=== PATIENT | male | born 1945 | race Caucasian/White ===

== ENCOUNTER 2018-06-16 18:23 | Emergency (ER) | payer MEDICARE, OTHER ==
[~2018-06-16] VITALS: Ht 182.9 cm; Wt 108.9 kg
--- OUTSIDE RECORDS SUMMARY | 2018-06-16 18:26 | XMS REPORT ---
Author Author Jose Daniel Tabares Organization eClinicalWorks Address Unknown Phone Unavailable Care Team Providers Care Child Care Development Specialist Name Role Phone Jose Daniel Tabares CP Unavailable Allergies, Adverse Reactions, Alerts Substance Reaction Event Type N.K.D.A. Info Not Available Non Drug Allergy Problems Problem Type Condition Code Onset Dates Condition Status Assessment Other symptoms involving cardiovascular system R09.89 Active Assessment HTN (hypertension), benign I10 Active Assessment PVD (peripheral vascular disease) I73.9 Active Problem HTN (hypertension), benign I10 Active Problem PVD (peripheral vascular disease) I73.9 Active Problem Coronary artery disease involving [place] coronary artery, angina presence unspecified, unspecified whether [place] or transplanted heart I25.10 Active Assessment Coronary artery disease involving [place] coronary artery, angina presence unspecified, unspecified whether elem or transplanted heart I25.10 Active Assessment Hx of CABG Z95.1 Active Assessment Abnormal electrocardiogram R94.31 Active Assessment Encounter for preprocedural cardiovascular examination Z01.810 Active Medications Medication Code System Code Instructions Start Date End Date Status Dosage Plavix [facility] [address]-44 75 MG Orally Once a day Active 1 [place] [address]-99 25 MG Orally Once a day Active 1 tablet NOVALOG NDC 0 45 once a day Active 1 tablet Pravastatin Sodium [facility] [address]-95 80 MG Orally Once a day Active 1 tablet Metroprolol ER Succinate NDC 0 25 mg twice a day (bid) Active 1 tablet Lantus [facility] [address]-61 85 Subcutaneous once a day Active 1 tablet Januvia [facility] [address]-77 50 MG Orally Once a day Active 2 tablets Jardiance [facility] [address]-52 10 MG Orally Once a day May 13, 2017 Jun 12, 2017 Active 1 tablet Vital Signs Date/Time: May 13, 2017 BMI 30.78 Index Weight 227 lbs Height 6'0 in Cardiac Monitoring Heart Rate 86 /min Blood Pressure Diastolic 60 mm Hg Blood Pressure Systolic 142 mm Hg Results No Known Results Summary Purpose eClinicalWorks Submission
--- OUTSIDE RECORDS SUMMARY | 2018-06-16 18:26 | XMS REPORT ---
Author Author Jose Daniel Tabares Organization eClinicalWorks Address Unknown Phone Unavailable Care Team Providers Care Barrel Builder Name Role Phone Jose Daniel Tabares CP Unavailable Allergies, Adverse Reactions, Alerts Substance Reaction Event Type N.K.D.A. Info Not Available Non Drug Allergy Problems Problem Type Condition Code Onset Dates Condition Status Assessment PVD (peripheral vascular disease) I73.9 Active Assessment Hx of CABG Z95.1 Active Assessment HTN (hypertension), benign I10 Active Assessment Carotid stenosis, right I65.21 Active Assessment Other symptoms involving cardiovascular system R09.89 Active Problem PVD (peripheral vascular disease) I73.9 Active Problem Coronary artery disease involving [place] coronary artery, angina presence unspecified, unspecified whether [place] or transplanted heart I25.10 Active Problem Carotid stenosis, right I65.21 Active Assessment Encounter for preprocedural cardiovascular examination Z01.810 Active Assessment Coronary artery disease involving [place] coronary artery, angina presence unspecified, unspecified whether [place] or transplanted heart I25.10 Active Problem HTN (hypertension), benign I10 Active Assessment Abnormal electrocardiogram R94.31 Active Medications Medication Code System Code Instructions Start Date End Date Status Dosage Triamterene-HCTZ [facility] 09589599681 37.5-25 MG Orally Once a day as needed December 15, 2017 Active 1 tablet in the morning Januvia ND 79575832683 50 MG Orally Once a day Active 2 tablets Pravastatin Sodium ND 35923892377 80 MG Orally Once a day Active 1 tablet Losartan Potassium ND 57394046176 25 MG Orally Once a day Active 1 tablet Plavix ND 52308483822 75 MG Orally Once a day Active 1 tablet Protonix ND 55863541215 40 MG Orally Once a day Active 1 tablet Metroprolol ER Succinate ND 0 25 mg twice a day (bid) Active 1 tablet Vital Signs Date/Time: December 15, 2017 BMI 30.78 Index Weight 227 lbs Height 6'0 in Cardiac Monitoring Heart Rate 68 /min Blood Pressure Diastolic 70 mm Hg Blood Pressure Systolic 148 mm Hg Results No Known Results Summary Purpose eClinicalWorks Submission
--- OUTSIDE RECORDS SUMMARY | 2018-06-16 18:26 | XMS REPORT ---
Author Author Jose Daniel Tabares Organization eClinicalWorks Address Unknown Phone Unavailable Care Team Providers Care Panel Flow Machine Operator Name Role Phone Jose Daniel Tabares CP Unavailable Allergies No Known Allergies Problems Problem Type Condition Code Onset Dates Condition Status Problem PVD (peripheral vascular disease) I73.9 Active Problem Coronary artery disease involving [place] coronary artery, angina presence unspecified, unspecified whether [place] or transplanted heart I25.10 Active Problem Carotid stenosis, right I65.21 Active Problem HTN (hypertension), benign I10 Active Medications Medication Code System Code Instructions Start Date End Date Status Dosage Triamterene-HCTZ [facility] 86160004825 37.5-25 MG Orally Once a day as needed December 15, 2017 Active 1 tablet in the morning Results No Known Results Summary Purpose eClinicalWorks Submission
--- OUTSIDE RECORDS SUMMARY | 2018-06-16 18:26 | XMS REPORT ---
Author Author Jose Daniel Tabares Organization eClinicalWorks Address Unknown Phone Unavailable Care Team Providers Care Temporary Office Assistant Name Role Phone Jose Daniel Tabares CP Unavailable Allergies No Known Allergies Problems Problem Type Condition Code Onset Dates Condition Status Assessment Other symptoms involving cardiovascular system R09.89 Active Assessment HTN (hypertension), benign I10 Active Assessment PVD (peripheral vascular disease) I73.9 Active Problem HTN (hypertension), benign I10 Active Problem PVD (peripheral vascular disease) I73.9 Active Problem Coronary artery disease involving [place] coronary artery, angina presence unspecified, unspecified whether [place] or transplanted heart I25.10 Active Assessment Coronary artery disease involving [place] coronary artery, angina presence unspecified, unspecified whether [place] or transplanted heart I25.10 Active Assessment Hx of CABG Z95.1 Active Assessment Abnormal electrocardiogram R94.31 Active Assessment Encounter for preprocedural cardiovascular examination Z01.810 Active Medications No Known Medications Results No Known Results Summary Purpose [employer] Submission
--- OUTSIDE RECORDS SUMMARY | 2018-06-16 18:26 | XMS REPORT ---
Author Author Jose Daniel Tabares Organization eClinicalWorks Address Unknown Phone Unavailable Care Team Providers Care Certified Marine Mechanic Name Role Phone Jose Daniel Tabares CP Unavailable Allergies No Known Allergies Problems Problem Type Condition Code Onset Dates Condition Status Assessment Other symptoms involving cardiovascular system R09.89 Active Assessment HTN (hypertension), benign I10 Active Assessment PVD (peripheral vascular disease) I73.9 Active Problem HTN (hypertension), benign I10 Active Problem PVD (peripheral vascular disease) I73.9 Active Problem Coronary artery disease involving [place] coronary artery, angina presence unspecified, unspecified whether [place] or transplanted heart I25.10 Active Assessment Coronary artery disease involving [place] coronary artery, angina presence unspecified, unspecified whether [place] or transplanted heart I25.10 Active Assessment Hx of CABG Z95.1 Active Assessment Abnormal electrocardiogram R94.31 Active Assessment Encounter for preprocedural cardiovascular examination Z01.810 Active Medications No Known Medications Results No Known Results Summary Purpose [employer]Works Submission
--- OUTSIDE RECORDS SUMMARY | 2018-06-16 18:26 | XMS REPORT ---
Author Author Jameson Mercado Organization e[employer]Works Address Unknown Phone Unavailable Care Team Providers Care Security Incident Response Engineer Name Role Phone Jameson Mercado Unavailable Encounters Encounter Location Date [place] [facility] Jun 24, 2016 Other [facility] Jul 29, 2016 Unknown [facility] Aug 03, 2014 Unknown [facility] Aug 03, 2014 Unknown [facility] Aug 12, 2014 Problems Problem Type Condition ICD-9 Code Onset Dates Condition Status Problem Hypertension 997.91 Active Problem Cellulitis - Foot 682.7 Active Problem Ulcer of right foot, with fat layer exposed L97.512 Active Problem Type 2 diabetes mellitus with diabetic peripheral angiopathy without gangrene E11.51 Active Problem Ulcer of other part of foot 707.15 Active Problem 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 . Answer: No quit 1988, Are you a former smoker Jul 09, 2016 Do you drink alcohol? . Status: Yes, Type: Socially Jul 09, 2016 Occupation: . disable Jul 09, 2016 Summary Purpose eClinicalWorks Submission
--- OUTSIDE RECORDS SUMMARY | 2018-06-16 18:26 | XMS REPORT ---
[facility] Address Unknown Phone Unavailable Care Team Providers Care Picker Box Operator Name Role Phone Unavailable Unavailable Payers Payer Name Policy Type Policy Number Effective Date Expiration Date Problems This patient has no known problems. Allergies, Adverse Reactions, Alerts Allergy Name Allergy Type Status Severity Reaction(s) Onset Date Inactive Date Treating Clinician Comments No Known Allergies DA Active U 2018-01-18 00:00:00 Medications This patient has no known medications.
--- OUTSIDE RECORDS SUMMARY | 2018-06-16 18:26 | XMS REPORT ---
Author Author Jameson Mercado Organization eClinicalWorks Address Unknown Phone Unavailable Care Team Providers Care It Solutions Sales Consultant Name Role Phone Jameson Mercado Unavailable Encounters Encounter Location Date [place] [facility] Jun 24, 2016 Unknown [facility] Aug 03, 2014 Unknown [facility] Aug 03, 2014 Unknown [facility] Aug 12, 2014 Problems Problem [...] quit 1988, Are you a former smoker Jun 14, 2016 Do you drink alcohol? . Status: Yes, Type: Socially Jun 14, 2016 Occupation: . disable Jun 14, 2016 Summary Purpose eClinicalWorks Submission
--- OUTSIDE RECORDS SUMMARY | 2018-06-16 18:26 | XMS REPORT ---
Author Author Jose Daniel Tabares Organization eClinicalWorks Address Unknown Phone Unavailable Care Team Providers Care Engineering Production Liaison Name Role Phone Jose Daniel Tabares CP [...] I73.9 Active Problem Coronary artery disease involving [place] coronary artery, angina presence unspecified, unspecified whether [place] or transplanted heart I25.10 Active Assessment Coronary artery disease involving [place] coronary artery, angina presence unspecified, unspecified whether [place] or transplanted heart I25.10 Active Assessment Hx of CABG Z95.1 Active Assessment Abnormal electrocardiogram R94.31 Active Assessment Encounter for preprocedural cardiovascular examination Z01.810 Active Medications Medication Code System Code Instructions Start Date End Date Status Dosage Losartan Potassium [facility] [address]-48 25 MG Orally Once a day Active 1 tablet Metroprolol ER Succinate NDC 0 25 mg twice a day (bid) Active 1 tablet Lantus [facility] [address]-22 85 Subcutaneous once a day Active 1 tablet Pravastatin Sodium [facility] [address]-32 80 MG Orally Once a day Active 1 tablet NOVALOG NDC 0 45 once a day Active 1 tablet Plavix [facility] [address]-14 75 MG Orally Once a day [place] 1 [place] [address]-35 50 MG Orally Once a day Active 2 tablets Vital Signs Date/Time: October 22, 2016 BMI 30.92 Index Weight 228 lbs Height 6'0 in Cardiac Monitoring Heart Rate 70 /min Blood Pressure Diastolic 72 mm Hg Blood Pressure Systolic 142 mm Hg Results No Known Results Summary Purpose eClinicalWorks Submission
--- OUTSIDE RECORDS SUMMARY | 2018-06-16 18:26 | XMS REPORT | Clinical Summary ---
Author Author Damian Sabianism Organization [facility] Address Unknown Phone Unavailable Care Team Providers Care Front Line Supervisor Name Role Phone Dileep Reyes MD PCP Allergies No Known Allergies Medications End Date Status Medication Sig Dispensed Refills Start Date Active gemfibrozil (LOPID) 600 Take 600 mg 0 01/15/ MG tablet by mouth 2 8 (two) times a day. Active pantoprazole (PROTONIX) Take 40 mg by 0 40 MG EC tablet mouth daily. 8 Active pioglitazone (ACTOS) 45 Take 45 mg by 0 02/03/ MG tablet mouth daily. 8 Active CLENPIQ 10 mg-3.5 gram TAKE 0 -12 gram/160 mL solution DIRECTED BY 8 PHYSICIAN Active triamterene-hydrochloroth 1 TABLET IN 2 iazid (MAXZIDE-25) THE MORNING 8 37.5-25 mg per tablet ONCE A DAY NEEDED ORALLY 30 DAY(S) Active ergocalciferol, vitamin Take by 0 D2, (VITAMIN D2 ORAL) mouth. 1 every 2 weeks Active ASPIRIN ORAL Take by 0 mouth. Active metoprolol tartrate Take 1 tablet 60 tablet 11 (LOPRESSOR) 25 mg tablet (25 mg total) 8 by mouth 2 (two) times a day. 04/01/2019 Active losartan (COZAAR) 25 MG Take 1 tablet 90 tablet 0 tablet (25 mg total) 8 by mouth daily. Active insulin GLARGINE (LANTUS Inject 80 10 mL 11 U-100 INSULIN) 100 Units under 8 unit/mL injection (vial) the skin nightly. Active insulin lispro (HumaLOG Inject 30 10 mL U-100 Insulin) 100 Units under 8 unit/mL injection the skin 3 (three) times a day before meals. Active diclofenac (VOLTAREN) 1 % Apply 4 gm to 100 g 1 gel affected area 8 QID 06/25/2018 Active tiZANidine (ZANAFLEX) 4 Take 1 tablet 20 tablet 0 MG tablet (4 mg total) 8 by mouth every 8 (eight) hours as needed for muscle spasms for up to 30 days. 04/01/2018 Discontinued guaifenesin/DM/pseudoephe Take by 0 drine (DECONGESTANT COUGH mouth. otc ORAL) Active Problems Problem Noted Date Pulmonary fibrosis 04/01/2018 Diabetic polyneuropathy associated with type 2 diabetes mellitus 02/09/2018 Uncontrolled type 2 diabetes mellitus with stage 3 chronic kidney disease, 02/09/2018 without long-term current use of insulin PAD (peripheral artery disease) 02/09/2018 Pulmonary emphysema 02/09/2018 Essential hypertension 02/09/2018 Legally blind in left eye, as defined in [place] 02/09/2018 Mixed hyperlipidemia 02/09/2018 BMI 32.0-32.9,adult 02/09/2018 Atherosclerosis of [place] coronary artery of apache heart without angina 02/09/2018 pectoris Chronic kidney disease, stage III (moderate) 02/09/2018 Other gastritis with bleeding 02/09/2018 VICTOR HUGO on CPAP 02/09/2018 Colon polyps 02/09/2018 Encounters Care Team Description Date Type Specialty Dileep Reyes MD Acute bilateral low back pain without sciatica (Primary Dx); Degenerative disc disease, lumbar; Uncontrolled type 2 diabetes mellitus with stage 3 chronic kidney disease, without long-term current use of insulin (HCC); Chronic kidney disease, stage III (moderate) (HCC); Essential hypertension 05/26/2018 Office Visit Family Medicine Dileep Reyes MD 05/20/2018 Telephone Family Medicine Dileep Reyes MD Diabetic polyneuropathy associated with type 2 diabetes mellitus (Primary Dx); Chronic kidney disease, stage III (moderate); Proliferative diabetic retinopathy of both eyes associated with type 2 diabetes mellitus, unspecified proliferative retinopathy type; Gastroesophageal reflux disease without esophagitis; Pulmonary emphysema, unspecified emphysema type; Pulmonary fibrosis; PAD (peripheral artery disease); Mixed hyperlipidemia; Essential hypertension; Uncontrolled type 2 diabetes mellitus with stage 3 chronic kidney disease, without long-term current use of insulin; Legally blind in left eye, as defined in [place]; Atherosclerosis of [place] coronary artery of [place] heart without angina pectoris 04/01/2018 Office Visit Family Medicine Dileep Reyes MD 04/01/2018 Telephone Family Medicine Dileep Reyes MD 04/01/2018 Orders Only Family Medicine Dileep Reyes MD 03/24/2018 Telephone Family Medicine Silvia Tam MA 02/16/2018 Telephone Family Medicine Dileep Reyes MD Skin ulcer of left foot with fat layer exposed (Primary Dx); Diabetic polyneuropathy associated with type 2 diabetes mellitus; Uncontrolled type 2 diabetes mellitus with stage 3 chronic kidney disease, without long-term current use of insulin; PAD (peripheral artery disease); Essential hypertension; Mixed hyperlipidemia 02/09/2018 Office Visit Family Medicine after 06/15/2017 Family History Medical History Relation Name Comments Diabetes Father Stroke Mother Relation Name Status Comments Father Mother Social History Date Tobacco Use Types Packs/Day Years Used Quit: 1988 Former Smoker Smokeless Tobacco: Never Used Alcohol Use Drinks/Week oz/Week Comments Yes Social Sex Assigned at Date Recorded Not on file Industry Job Start Date Occupation Not on file Not on file Not on file Travel End Travel History Travel Start No recent travel history available. Last Filed Vital Signs Time Taken Vital Sign Reading 05/26/2018 11:32 AM SEDIMENT REMEDIATION CONSULTANT Blood Pressure 118/78 05/26/2018 11:32 AM SEDIMENT REMEDIATION CONSULTANT Pulse 94 05/26/2018 11:32 AM SEDIMENT REMEDIATION CONSULTANT Temperature 36.4 C (97.5 F) 05/26/2018 11:32 AM SEDIMENT REMEDIATION CONSULTANT Respiratory Rate 20 05/26/2018 11:32 AM SEDIMENT REMEDIATION CONSULTANT Oxygen Saturation 96% - Inhaled Oxygen - Concentration 05/26/2018 11:32 AM SEDIMENT REMEDIATION CONSULTANT Weight 113 kg (248 lb 12.8 oz) 05/26/2018 11:32 AM SEDIMENT REMEDIATION CONSULTANT Height 182.9 cm (6') 05/26/2018 11:32 AM SEDIMENT REMEDIATION CONSULTANT Body Mass Index 33.74 Plan of Treatment Health Maintenance Due Date Last Done Comments DIABETIC RETINAL EYE EXAM 1945 DIABETIC FOOT EXAM 1955 COLON CANCER SCREENING 1995 SHINGRIX VACCINE (1 of 2) 1995 ZOSTER VACCINE 2005 PNEUMOCOCCAL 2010 POLYSACCHARIDE VACCINE AGE 65 AND OVER PNEUMOCOCCAL-13 2010 INFLUENZA VACCINE 02/11/2018 Procedures Comments Procedure Name Priority Date/Time Associated Diagnosis POC URINALYSIS DIPSTICK Routine 05/26/2018 Acute bilateral low back 11:59 AM SEDIMENT REMEDIATION CONSULTANT pain without sciatica ANAEROBIC AND AEROBIC Routine 02/09/2018 Skin ulcer of left foot CULTURE 1:13 PM CDT with fat layer exposed after 06/15/2017 Results * POC urinalysis dipstick (05/26/2018 11:59 AM SEDIMENT REMEDIATION CONSULTANT) Color urine, POC Yellow Clarity urine, POC Clear Glucose urine, POC 1+ (A) Negative Bilirubin urine, POC Negative Negative Ketones urine, POC Negative Negative Specific gravity urine, 1.025 1.005 - 1.030 POC Blood urine, POC Moderate (A) Negative pH urine, POC 6.0 5.0, 5.5, 6.0, 6.5, 7.0, 7.5, 8.0, 8.5 Protein urine, POC 3+ (A) Negative Urobilinogen urine, POC <2.0 <2.0 Nitrite urine, POC Negative Negative Leukocyte esterase urine, Negative Negative POC Specimen Urine * Anaerobic and aerobic culture (02/09/2018 1:13 PM CDT) Aerobic and anaerobic SEE NOTE [facility] culture w/gram stain Comment: PEREZ CULTURE, ANAEROBIC BACTERIA W/GRAM STAIN MICRO NUMBER:[id number] TEST STATUS: FINAL SPECIMEN SOURCE: FOOT, LEFT SPECIMEN QUALITY:ADEQUATE GRAM STAIN:No white blood cells seen No epithelial cells seen Moderate Gram positive cocci in clusters RESULT: No anaerobes isolated. Aerobic culture isolate SEE NOTE (A) [facility] Comment: PEREZ CULTURE, AEROBIC BACTERIA MICRO NUMBER:[id number] TEST STATUS: FINAL SPECIMEN SOURCE: FOOT, LEFT SPECIMEN QUALITY:ADEQUATE RESULT: Heavy growth of Staphylococcus aureus S.aureus -------- -------- INT MILLA CIPROFLOXACIN S <=0.5 CLINDAMYCIN S <=0.25 ERYTHROMYCIN S <=0.25 GENTAMICIN S <=0.5 LEVOFLOXACIN S 0.25 MOXIFLOXACIN S <=0.25 OXACILLIN S <=0.25 1 TETRACYCLINE S <=1 TRIMETHOPRIM/SULFA S <=10 VANCOMYCIN S 1 S=SusceptibleI=Intermediat eR=Resistant*=Not Tested NR=Not ReportedNN=See Therapy Comments THERAPY COMMENTS Note 1: Oxacillin-susceptible staphylococci are susceptible to other penicillinase-stable penicillins (e.g. Methicillin, Nafcillin), beta- lactam/beta-lactamase inhibitor combinations, and cephems with staphylococcal indications, including Cefazolin. Specimen Body fluid Resulting Agency Comment Performing Organization Information: Site ID: [id number] Address: [address] [place] [id number] Director: Arianna Kennedy Performing Organization Address City/State/[facility] Number [facility] [address] [place] [address] after 06/15/2017 Insurance Payer Benefit Subscriber ID Type Phone Address Plan / Group AETNA MEDICARE AETNA xxxxxxxx HMO MEDICARE HMO/PPO [facility] Advance Directives Patient has advance care planning documents on file. For more information, erik hicks contact: Damian Samayoa [address] [place] [address]
--- OUTSIDE RECORDS SUMMARY | 2018-06-16 18:26 | XMS REPORT ---
Author Author Jim Mercado [facility] eClinicalWorks Address Unknown Phone Unavailable Care Team Providers Care Process Lead Name Role Phone Jim Mercado Unavailable Encounters Encounter Location Date Unknown [facility] Aug 03, 2014 Social History Social History Element Qualifiers Date Reported Do you smoke? . Answer: No quit 1988, Are you a former smoker Aug 02, 2014 Do you drink alcohol? . Status: Yes, Type: Socially Aug 02, 2014 Occupation: . disable Aug 02, 2014 Summary Purpose eClinicalWorks Submission
--- OUTSIDE RECORDS SUMMARY | 2018-06-16 18:26 | XMS REPORT ---
Author Author Jose Daniel Tabares Organization eClinicalWorks Address Unknown Phone Unavailable Care Team Providers Care Metal Furnace Operator Name Role Phone Jose Daniel Tabares CP Unavailable Allergies, Adverse Reactions, Alerts Substance Reaction Event Type N.K.D.A. Info Not Available Non Drug Allergy Problems Problem Type Condition Code Onset Dates Condition Status Assessment HTN (hypertension), benign I10 Active Assessment PVD (peripheral vascular disease) I73.9 Active Problem HTN (hypertension), benign I10 Active Problem PVD (peripheral vascular disease) I73.9 Active Problem Coronary artery disease involving [place] coronary artery, angina presence unspecified, unspecified whether [place] or transplanted heart I25.10 Active Assessment Coronary artery disease involving [place] coronary artery, angina presence unspecified, unspecified whether [place] or transplanted heart I25.10 Active Assessment Hx of CABG Z95.1 Active Assessment Abnormal electrocardiogram R94.31 Active Assessment Encounter for preprocedural cardiovascular examination Z01.810 Active Medications Medication Code System Code Instructions Start Date End Date Status Dosage Januvia [facility] [address]-24 50 MG Orally Once a day Active 2 tablets Plavix [facility] [address]-43 75 MG Orally Once a day Active 1 tablet Lantus [facility] [address]-66 85 Subcutaneous once a day Active 1 tablet Metroprolol ER Succinate NDC 0 25 mg twice a day (bid) Active 1 tablet Pravastatin Sodium [facility] [address]-31 80 MG Orally Once a day Active 1 tablet Losartan Potassium [facility] [address]-24 25 MG Orally Once a day Active 1 tablet NOVALOG NDC 0 45 once a day Active 1 tablet Vital Signs Date/Time: October 10, 2016 BMI 30.92 Index Weight 228 lbs Height 6'0 in Cardiac Monitoring Heart Rate 69 /min Blood Pressure Diastolic 78 mm Hg Blood Pressure Systolic 130 mm Hg Results No Known Results Summary Purpose eClinicalWorks Submission
--- OUTSIDE RECORDS SUMMARY | 2018-06-16 18:26 | XMS REPORT ---
Author Author Jose Daniel Tabares Organization [employer] Address Unknown Phone Unavailable Care Team Providers Care Steno Pool Supervisor Name Role Phone Jose Daniel Tabares CP Unavailable Allergies No Known Allergies Problems Problem Type Condition Code Onset Dates Condition Status Assessment HTN (hypertension), benign I10 Active Assessment PVD (peripheral vascular disease) I73.9 Active Problem HTN (hypertension), benign I10 Active Problem PVD (peripheral vascular disease) I73.9 Active Problem Coronary artery disease involving [place] coronary artery, angina presence unspecified, unspecified whether [place] or transplanted heart I25.10 Active Assessment Coronary artery disease involving [place] coronary artery, angina presence unspecified, unspecified whether [place] or transplanted heart I25.10 Active Assessment Hx of CABG Z95.1 Active Assessment Abnormal electrocardiogram R94.31 Active Assessment Encounter for preprocedural cardiovascular examination Z01.810 Active Medications No Known Medications Results No Known Results Summary Purpose [employer] Submission
--- OUTSIDE RECORDS SUMMARY | 2018-06-16 18:26 | XMS REPORT ---
Author Author Jose Daniel Tabares Organization [employer] Address Unknown Phone Unavailable Care Team Providers Care Associate Professor Name Role Phone Jose Daniel Tabares CP Unavailable Allergies No Known Allergies Problems Problem Type Condition Code Onset Dates Condition Status Assessment Other symptoms involving cardiovascular system R09.89 Active Assessment HTN (hypertension), benign I10 Active Assessment PVD (peripheral vascular disease) I73.9 Active Problem Coronary artery disease involving [place] coronary artery, angina presence unspecified, unspecified whether [place] or transplanted heart I25.10 Active Problem HTN (hypertension), benign I10 Active Problem PVD (peripheral vascular disease) I73.9 Active Assessment Coronary artery disease involving [place] coronary artery, angina presence unspecified, unspecified whether [place] or transplanted heart I25.10 Active Assessment Hx of CABG Z95.1 Active Assessment Abnormal electrocardiogram R94.31 Active Assessment Encounter for preprocedural cardiovascular examination Z01.810 Active Medications Medication Code System Code Instructions Start Date End Date Status Dosage Losartan Potassium ND 52516328506 25 MG Orally Once a day Active 1 tablet Plavix ND 03835568694 75 MG Orally Once a day Active 1 tablet Pravastatin Sodium ND 58158945065 80 MG Orally Once a day Active 1 tablet Metroprolol ER Succinate NDC 0 25 mg twice a day (bid) Active 1 tablet Januvia ND 96926326869 50 MG Orally Once a day Active 2 tablets Results No Known Results Summary Purpose [employer] Submission
--- OUTSIDE RECORDS SUMMARY | 2018-06-16 18:26 | XMS REPORT | Continuity of Care Document ---
Author Author [facility] Interface Address Unknown Phone Unavailable Problems Problem Status Onset Date Classification Date Reported Comments Source PVD Active Problem 03/27/2018 [facility] Coronary artery disease involving [place] coronary artery, angina presence unspecified, unspecified whether [place] or transplanted heart Active Problem 03/27/2018 [facility] Carotid stenosis, right Active Problem 03/27/2018 [facility] HTN , benign Active Problem 03/27/2018 [facility] Other symptoms involving cardiovascular system Active Diagnosis 12/17/2017 [facility] Hx of CABG Active Diagnosis 12/17/2017 [facility] Abnormal electrocardiogram Active Diagnosis 12/17/2017 [facility] Encounter for preprocedural cardiovascular examination Active Diagnosis 12/17/2017 [facility] Hypertension Active Problem 07/31/2016 [facility] Cellulitis - Foot Active Problem 07/31/2016 [facility] Ulcer of right foot, with fat layer exposed Active Problem 07/31/2016 [facility] Type 2 diabetes mellitus with diabetic peripheral angiopathy without gangrene Active Problem 07/31/2016 [facility] Ulcer of other part of foot Active Problem 07/31/2016 [facility] DM neuro manif type II Active Problem 07/31/2016 [facility] Medications Medication Details Route Status Patient Instructions Ordering Provider Order Date Source Triamterene-HCTZ 1 tablet in the morning Orally Active 37.5-25 MG Orally Once a day as needed [facility] 12/15/2017 [facility] Jardiance 1 tablet Orally Active 10 MG Orally Once a day [facility] 05/13/2017 [facility] Losartan Potassium 1 tablet Orally Active 25 MG Orally Once a day [facility] Plavix 1 tablet Orally Active 75 MG Orally Once a day [facility] Pravastatin Sodium 1 tablet Orally Active 80 MG Orally Once a day [facility] Metroprolol ER Succinate 1 tablet NA Active 25 mg twice a day (bid) [facility] Januvia 2 tablets Orally Active 50 MG Orally Once a day [facility] Protonix 1 tablet Orally Active 40 MG Orally Once a day [facility] Plavix 1 tablet Orally Active 75 MG Orally Once a day [facility] Losartan Potassium 1 tablet Orally Active 25 MG Orally Once a day [facility] NOVALOG 1 tablet NA Active 45 once a day [facility] Pravastatin Sodium 1 tablet Orally Active 80 MG Orally Once a day [facility] Lantus 1 tablet Subcutaneous Active 85 Subcutaneous once a day [facility] Januvia 2 tablets Orally Active 50 MG Orally Once a day [facility] Allergies, Adverse Reactions, Alerts Substance Category Reaction Severity Reaction type Status Date Reported Comments Source N.K.D.A. Adverse Reaction Info Not Available Adverse Reaction Active 12/15/2017 [facility] Immunizations Immunization Date Given Site Status Last Updated Comments Source Results Order Name Results Value Reference Range Date Interpretation Comments Source Vital Signs Vital Sign Value Date Comments Source Weight 227 12/15/2017 [facility] Heart Rate 68 12/15/2017 [facility] Diastolic (mm Hg) 70 12/15/2017 [facility] Systolic (mm Hg) 148 12/15/2017 [facility] Weight 227 05/13/2017 [facility] Heart Rate 86 05/13/2017 [facility] Diastolic (mm Hg) 60 05/13/2017 [facility] Systolic (mm Hg) 142 05/13/2017 [facility] Weight 228 10/22/2016 [facility] Heart Rate 70 10/22/2016 [facility] Diastolic (mm Hg) 72 10/22/2016 [facility] Systolic (mm Hg) 142 10/22/2016 [facility] Weight 228 10/10/2016 [facility] Heart Rate 69 10/10/2016 [facility] Diastolic (mm Hg) 78 10/10/2016 [facility] Systolic (mm Hg) 130 10/10/2016 [facility] Encounters Location Location Details Encounter Type Encounter Number Reason For Visit Attending Provider ADM Date DC Date Status Source [facility] Unknown [id number] 08/03/2014 08/03/2014 [facility] Unknown [id number] 08/03/2014 08/03/2014 [facility] Unknown [id number] 08/03/2014 08/03/2014 [facility] [id number] 08/03/2014 08/03/2014 [facility] [id number] 08/03/2014 08/03/2014 [facility] [id number] 08/12/2014 08/12/2014 [facility] [id number] 08/12/2014 08/12/2014 [facility] [place] [facility] [id number] 06/24/2016 06/24/2016 [facility] [id number] 06/24/2016 06/24/2016 [facility] Other [id number] 07/29/2016 07/29/2016 [facility] Procedures Procedure Code Date Perfomer Comments Source
--- NOTE | 2018-06-16 21:44 | Diagnostic Imaging Report ---
History: Neck pain. Comparison studies: None Technique: Axial images were obtained through the cervical region.. Coronal and sagittal images reconstructed from the axial data. Dose modulation, iterative reconstruction, and/or weight based adjustment of the mA/kV was utilized to reduce the radiation dose to as low as reasonably achievable. Intravenous contrast: None Findings: Fractures: None. Soft tissue injuries: None. Atlantoaxial articulation: Intact. Alignment: Loss of normal cervical lordosis is either positional or due to muscle spasm. No scoliosis. Cervicomedullary junction: No abnormalities. The foramen magnum is patent. Soft tissues: Atherosclerotic calcification in bilateral carotid bulb. Vertebrae: Status post anterior cervical spine fusion from level C5-C7 with C6 partial corpectomy and spacer device placement. The metallic hardware is intact. Suboptimal evaluation at this level due to metallic streak artifacts. No fractures, infection or neoplasm. Degenerative changes: C2-C3: Mild degenerative disc disease. Posterior disc osteophyte complex results in mild canal stenosis. Moderate right foraminal stenosis due to facet and uncovertebral arthrosis. C3-C4: Mild degenerative disc disease. Posterior disc osteophyte complex results in mild canal stenosis. Mild right foraminal stenosis due to advanced facet and uncovertebral arthrosis. C4-C5: Mild degenerative disc disease. Mild bilateral foraminal stenosis due to facet and uncovertebral arthrosis. C6-C7: Moderate bilateral foraminal stenosis due to facet and uncovertebral arthrosis IMPRESSION: 1. No acute cervical spine fracture. Loss of normal cervical lordosis is either positional or due to muscle spasm. 2. Ligament, spinal cord and or vascular abnormalities cannot be excluded on the basis of this examination. 3. Expected postoperative changes from prior anterior cervical spine fusion from C5 to C7. 4. Cervical spondylosis as detailed above. Signed by: Dr. Nyla Oliver M.D. on 06/16/2018 9:40 PM
[2018-06-16 23:14] VITALS: BP 146/85
== END 2018-06-16 22:50 | disposition home or self-care (01) ==
LOC: FSED 18:23
DX: S16.1XXA Strain of muscle, fascia and tendon at neck level, initial encounter (principal); I10 Essential (primary) hypertension; E11.9 Type 2 diabetes mellitus without complications; M47.812 Spondylosis without myelopathy or radiculopathy, cervical region; J44.9 Chronic obstructive pulmonary disease, unspecified; E78.5 Hyperlipidemia, unspecified; I25.2 Old myocardial infarction; Z87.891 Personal history of nicotine dependence; Z98.1 Arthrodesis status
CPT/HCPCS: 72125; 80053; 82553; 84484; 85025; 93005; 99283